=== PATIENT | female | born 2005 | race Caucasian/White ===

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

== ENCOUNTER → 2025-04-11 11:25 | Outpatient (REF) | payer OTHER, SELFPAY | LOC: OHS 11:25 | PROVIDERS: ATTENDING PHYSICIAN Nurse Practitioner Family | DX: Z23 Encounter for immunization (principal) | CPT/HCPCS: 36415; 86480; 86706 ==

== ENCOUNTER → 2025-04-19 08:04 | Outpatient (REF) | payer OTHER, SELFPAY | LOC: HWRCS 08:04 | PROVIDERS: ATTENDING PHYSICIAN Internal Medicine Cardiovascular Disease; FAMILY PHYSICIAN Family Medicine | DX: R00.0 Tachycardia, unspecified (principal); Z87.898 Personal history of other specified conditions; R00.2 Palpitations | CPT/HCPCS: 93306 ==